=== PATIENT | male | born 1970 | race Caucasian/White ===

== ENCOUNTER → 2017-02-26 | Outpatient (CLI) | payer OTHER ==
[~2017-02-26] MED LIST: BACITRACIN15 G1 TP; COLACE-DPS100 MG PO; PERCOCET 5 DPS1 TAB PO; TUMS DPS500 MG PO; TYLENOL DPS325 MG PO; VALIUM-DPS5 MG PO
== END | disposition home or self-care (01) ==
LOC: PTH.S 10:43
DX: Z01.818 Encounter for other preprocedural examination (principal)

== ENCOUNTER 2017-03-06 05:15 | Inpatient (IN) | payer OTHER ==
[~2017-03-06] VITALS: Ht 175.3 cm; Wt 82.6 kg
--- NOTE | ~2017-03-06 | DS ---
ADMIT: 03/06/2017 RM/LOC: [address] [facility] MR#: [id number] ACC#: [id number] [address] [facility] [address] [place], [place] [id number] [address] [place] [address] General Discharge Summary SEX: M AGE: 47 : 1970 ADMISSION DATE: 03/06/2017 DISCHARGE DATE: 03/09/2017 SERVICE: Neurosurgery. REASON FOR ADMISSION: 1. Degenerative cervical disc disease with myelopathy. 2. Cervical spinal stenosis. 3. Myelopathy with radiculopathy. PROCEDURES: Anterior cervical diskectomy and fusion at cervical 3 through 6. HOSPITAL COURSE: Mr. Duarte tolerated his procedure well. Postoperatively, he was taken to the Med/Surg floor for monitoring and care. He did work with Physical Therapy and Occupational Therapy and tolerated this quite well. Postop day #1, he was awake and alert. He was afebrile, and his vital signs were stable. He was moving all extremities x4. He had 4/5 strength in his right arm. His dressing was clean, dry, and intact. His MARLENE drain was patent with serosanguineous drainage. His MARLENE drain was discontinued without difficulty, and he tolerated this quite well. He continued to work with Physical Therapy and Occupational Therapy. Postop day #2, he was awake and alert. He was afebrile, and his vital signs were stable. He was moving all extremities x4 with 5/5 strength. He had increased sensation to his right arm. His incision was clean, dry, and intact. No hematoma or cerebrospinal fluid accumulation was noted. He continued to work with Physical Therapy and Occupational Therapy. Postop day #3, he was awake and alert. He was afebrile, and his vital signs were stable. He was moving all extremities x4 with 5/5 strength. His incision was clean, dry, and intact and no hematoma or cerebrospinal fluid accumulation was noted. He was ambulating, urinating, and defecating per his norm and was requesting discharge home. Discharge condition good. MEDICATIONS: 1. Colace 100 mg p.o. b.i.d. 2. Bacitracin ointment to his incision q.p.m. for 14 days. 3. Percocet 5/325, 1 to 2 p.o. q.4 hours p.r.n. 4. Tums 500 mg 1 to 2 tablets p.o. q.i.d. p.r.n. 5. Tylenol 650 mg p.o. q.4 hours p.r.n. 6. Valium 5 mg 1 to 2 tablets p.o. q.8 hours p.r.n. DISCHARGE INSTRUCTIONS: Per Dr. Martell. He can have a regular diet. He may shower, he should not take any tub baths, he should pat his incision dry. ADMIT: 03/06/2017 RM/LOC: [address] [facility] MR#: [id number] [address] [place] [id number] [address] [place] [address] General Discharge Summary SEX: M AGE: 47 : 1970 He should wear the [place] J collar at all times when he is up and out of bed. He should not lift anything greater than 15 pounds. He should not smoke. He should not take any NSAIDs. He will call with any questions or concerns including neurological worsening, signs or symptoms of infection, or any other issues. FOLLOWUP: He will follow up in clinic with Alba in 2 weeks. DISPOSITION: He was discharged home. Total [id number] time for the discharge planning care coordination was 30 minutes. Alba Lopez APRN / Usman Martell MD / modl JOB #: [id number] CC: Usman Martell MD, Attending Physician Chevy Ontiveros, Family Physician
--- NOTE | 2017-03-08 07:33 | OR ---
ADMIT: 03/06/2017 RM/LOC: [address] [facility] MR#: [id number] [address] [facility] [address] [place] [id number] [address] GALICIA [place] [address] Operative/Delivery Room Report SEX: M AGE: 47 : 1970 SURGERY DATE: 03/06/2017 SURGEON: Usman Martell MD PREOPERATIVE DIAGNOSIS: Herniated nucleus pulposus with cervical stenosis with radiculopathy and signs of myelopathy; 3-4, 4-5, and 5-6. POSTOPERATIVE DIAGNOSIS: Herniated nucleus pulposus with cervical stenosis with radiculopathy and signs of myelopathy; 3-4, 4-5, and 5-6. DATA CLERK: Alba Lopez APRN PROCEDURES: 1. Anterior cervical diskectomy, 3-4, 4-5, and 5-6 with decompression of thecal sac and neural foramen bilaterally. 2. Anterior cervical arthrodesis, 3-4, 4-5, and 5-6. 3. Anterior instrumentation, 3, 4, 5, and 6 utilizing [employer] hardware. 4. Placement of structural tricortical allograft at the 3-4, 4-5, and 5-6 level for fusion substrate. DESCRIPTION OF PROCEDURE: After gaining informed consent, the patient was taken to the operating theater placed under general endotracheal anesthesia in supine position. A time-out was utilized to ascertain the correct site and side of surgery as well as other pertinent patient historical information. Counts were obtained at beginning and end of the case with no change betwixt two. Antibiotics given within 1 hour of incision. The fluoroscope was brought into the field. An incision was fashioned horizontally in the anterior neck, taking down the platysma in a longitudinal fashion and transient through the paratracheal and paraesophageal groove, clipping, ligating some venous branches and the superior thyroid artery. Once this was completed, the anterior spinal column was discovered and the 4-5 level was marked utilizing fluoroscopy. Once this was completed, the Percussion Instrument Repairer retractor system was placed under the medial cuffs of the longus colli musculature. Attention was turned to diskectomy; 3-4, 4-5, and 5-6. The anterior longitudinal ligament was incised and then various curettes, rongeurs, and a high-speed drill was used to remove the disk material as well as the cartilaginous endplates. Coming down to the posterior longitudinal ligament at all the levels, 3-4 and 5-6 were the worst herniated with posterior disk osteophytes that were resected as wide as possible with a small Kerrison punch rongeur. This was taken out into the neural foramina at all of the levels 3- 4, 4-5, and 5-6. I was then able to sound into the neural foramen bilaterally at the aforementioned levels utilizing a nerve hook with no sign of further compression. Once this was completed, pristine hemostasis was obtained. Attention was turned to instrumentation. ADMIT: 03/06/2017 RM/LOC: [address] [facility] MR#: [id number] [address] [place] [phone] [address] [place] [address] Operative/Delivery Room Report SEX: M AGE: 47 : 1970 Lordotic structural allograft spacers were brought into the field and tapped in very cautiously at the 3-4, 4-5 and 5-6 levels and then an appropriately sized plate was brought into the field. The anterior spine was decorticated at the site of the screw holes and then 14-mm vancomycin powder-coated screws were then implanted. Once this was completed, attention was turned to closure after obtaining fluoroscopy revealing the levels operated upon. The cam locks were locked into place. A MARLENE drain was daylighted out and the wound was closed with simple interrupted 2-0 Vicryl in the hypodermic tissue and subcuticular 3-0 Stratafix on the skin with Steri-Strips over that. Ms. Lopez assisted with suction, retraction, and closure at the end of the case. COMPLICATIONS: None. ESTIMATED BLOOD LOSS: Charted. SPECIMEN: Disk. DISPOSITION: Extubated and taken to postanesthesia care unit. Usman Martell MD/ brayan JOB #: [id number] CC: Usman Martell, Attending Physician Chevy Ontiveros, Family Physician
[2017-03-10] MEDS ORDERED: COLACE-DPS100 MG PO (14:58)
[2017-03-10] MEDS ORDERED: BACITRACIN15 G1 TP (14:59)
[2017-03-10] MEDS ORDERED: TYLENOL DPS325 MG PO (15:00)
[2017-03-10] MEDS ORDERED: TUMS DPS500 MG PO (15:00)
[2017-03-10] MEDS ORDERED: PERCOCET 5 DPS1 TAB PO (15:01)
[2017-03-10] MEDS ORDERED: VALIUM-DPS5 MG PO (15:02)
== END 2017-03-09 12:30 | disposition home or self-care (01) | DRG 472 ==
LOC: 5MS 05:15 → WOR 05:15 → 5MS 09:14
PROVIDERS: ADMIT Neurological Surgery
PROC: 0RB30ZZ Excision of Cervical Vertebral Disc, Open Approach (ICD-10-PCS; principal; 2017-03-06)
PROC: 0RG20K0 Fusion of 2 or more Cervical Vertebral Joints with Nonautologous Tissue Substitute, Anterior Approach, Anterior Column, Open Approach (ICD-10-PCS; principal; 2017-03-06)
DX: M50.11 Cervical disc disorder with radiculopathy, high cervical region (principal); M50.01 Cervical disc disorder with myelopathy, high cervical region; F17.200 Nicotine dependence, unspecified, uncomplicated